=== PATIENT | male | born 1960 | race Two or more races ===

== ENCOUNTER 2019-01-04 09:47 | Emergency (ER) | payer SELFPAY ==
[~2019-01-04] VITALS: Ht 177.8 cm; Wt 79.4 kg
[2019-01-04 11:15] LABS: Basophils # (auto) 0.1 uL; Basophils % (auto) 1.9 % (0.0-2.0); Eosinophils # (auto) 0 uL; Eosinophils % (auto) 0.5 % (0.0-7.0); Hematocrit 45.8 % (41.0-53.0); Hemoglobin 15.9 g/dL (13.5-17.5); Lymphocytes # (auto) 1.3 uL; Mean Corpuscular Hemoglobin 31.5 pg (28.0-32.0); Mean Corpuscular Hgb Conc. 34.7 g/dL (32.0-36.0); Mean Corpuscular Volume 90.8 fL (80.0-100.0); Monocytes # (auto) 0.3 uL; Monocytes % (auto) 6.2 % (0.0-12.0); Neutrophils # (auto) 3.8 uL; Neutrophils % (auto) 68.4 % (37.0-80.0); Nucleated Red Blood Cells % 0.1 %; Platelet Count (auto) 236 10^3/uL (140-450); Red Blood Cells 5.04 10^6/uL (4.5-5.90); Red Cell Distribution Width 13.8 % (11.8-14.3); White Blood Cell 5.6 10^3/uL (4.4-10.8)
[2019-01-04 11:30] LABS: Albumin 3.2 g/dL (3.4-5.0); Calcium 8.7 mg/dL (8.5-10.1); Potassium 4.4 mmol/L (3.5-5.1)
[2019-01-04] MEDS ORDERED: SODIUM CHLORIDE 0.9% 1,000 ML IV ONE (11:30)
[2019-01-04] MEDS ORDERED: MORPHINE SULFATE 4 MG/ML SYR/VIAL IV ONE (11:30)
[2019-01-04] MEDS ORDERED: InsuLIN REG 1unit/0.01ml Soln (100units/ml) IV ONE (11:30)
[2019-01-04] MEDS ORDERED: ONDANSETRON HCL 4 MG/2 ML VIAL IV ONE (11:30)
[2019-01-04 11:39] LABS: BUN/Creatinine Ratio 14.4; Bilirubin, Total 0.3 mg/dL (0.2-1.0)
[2019-01-04] MEDS ORDERED: SODIUM CHLORIDE 0.9% 1,000 ML IVB ONE (12:23)
[2019-01-04 12:58] LABS: Urine Bacteria NONE SEEN /hpf (None Seen); Urine Blood Negative /uL (Negative); Urine Specific Gravity 1.027 (1.001-1.035); Urine WBC <1 /hpf (0 - 3)
[2019-01-04 15:57] VITALS: BP 109/73
== END 2019-01-04 17:02 | disposition home or self-care (01) ==
LOC: EDBD 09:47 → ER 09:47
DX: E83.52 Hypercalcemia (principal); N30.91 Cystitis, unspecified with hematuria; E78.5 Hyperlipidemia, unspecified; I10 Essential (primary) hypertension; E13.40 Other specified diabetes mellitus with diabetic neuropathy, unspecified
CPT/HCPCS: 36415; 71045; 74176; 80053; 81001; 82962; 85025; 94761; 96374; 96375; 99284; J1815; J2270; J2405

== ENCOUNTER → 2019-05-15 | Outpatient (CLI) | payer MEDICAID | END | disposition home or self-care (01) | LOC: Rad HDHVI 09:30 | PROVIDERS: ATTEND Internal Medicine | DX: I10 Essential (primary) hypertension (principal); R07.9 Chest pain, unspecified; J44.9 Chronic obstructive pulmonary disease, unspecified | CPT/HCPCS: 93306 ==

== ENCOUNTER → 2019-05-20 | Outpatient (CLI) | payer MEDICAID ==
[~2019-05-20] VITALS: Ht 177.8 cm; Wt 81.6 kg
[~2019-05-20] MED LIST: ADENOSINE 69 MG in GIVE UN-DILUTED 0 ML IV ONE; ADENOSINE 90 MG/30 ML INJ IV ONE
== END | disposition home or self-care (01) ==
LOC: Rad HDHVI 12:55
PROVIDERS: ATTEND Internal Medicine
DX: E78.00 Pure hypercholesterolemia, unspecified (principal); I10 Essential (primary) hypertension; E11.9 Type 2 diabetes mellitus without complications; J44.9 Chronic obstructive pulmonary disease, unspecified; R07.9 Chest pain, unspecified; Z82.49 Family history of ischemic heart disease and other diseases of the circulatory system
CPT/HCPCS: 78452; 93005; 96374; 96375; A9500; J0153

== ENCOUNTER → 2019-08-22 | Outpatient (CLI) | payer MEDICAID ==
[2019-08-22 08:50] VITALS: BP 121/72
[2019-08-22 09:20] VITALS: BP 109/68
[2019-08-22 12:09] LABS: Basophils # (auto) 0.1 10 ^3/uL (0-0.2); Basophils % (auto) 0.8 % (0.0-2.0); Eosinophils # (auto) 0.2 10 ^3/uL (0-0.8); Eosinophils % (auto) 2.6 % (0.0-7.0); Hemoglobin 15.3 g/dL (13.5-17.5); Lymphocytes # (auto) 2.3 10 ^3/uL (0.4-5.4); Lymphocytes % (auto) 36.9 % (10.0-50.0); Mean Corpuscular Hemoglobin 30.5 pg (28.0-32.0); Mean Corpuscular Hgb Conc. 33.4 g/dL (32.0-36.0); Mean Corpuscular Volume 91.3 fL (80.0-100.0); Monocytes # (auto) 0.5 10 ^3/uL (0-1.3); Monocytes % (auto) 7.3 % (0.0-12.0); Neutrophils # (auto) 3.3 10 ^3/uL (1.6-8.6); Neutrophils % (auto) 52.4 % (37.0-80.0); Nucleated Red Blood Cells % 0.1 %; Platelet Count (auto) 249 10^3/uL (140-450); Red Blood Cells 5.04 10^6/uL (4.5-5.90); Red Cell Distribution Width 15.1 % (11.8-14.3); White Blood Cell 6.3 10^3/uL (4.4-10.8)
[2019-08-22 12:12] LABS: Partial Thromboplastin Time 27.3 sec (23.64-32.05)
[2019-08-22 12:29] LABS: Calcium 9.1 mg/dL (8.5-10.1); Potassium 3.7 mmol/L (3.5-5.1)
[2019-08-22 12:32] LABS: BUN/Creatinine Ratio 13.2
== END | disposition home or self-care (01) ==
LOC: Rad HDHVI 08:30
PROVIDERS: ATTEND Internal Medicine
DX: Z01.812 Encounter for preprocedural laboratory examination (principal); J98.11 Atelectasis
CPT/HCPCS: 36415; 71046; 80048; 85025; 85610; 85730; 93005; G0463

== ENCOUNTER 2019-08-27 07:13 | Day surgery (SDC) | payer MEDICAID ==
[~2019-08-27] VITALS: Ht 177.8 cm; Wt 83.9 kg
[2019-08-27] MEDS ORDERED: IODIXANOL 320MG/ML 100ML BTL IV ONE ×2 (07:34→09:00)
[2019-08-27] MEDS ORDERED: LIDOCAINE 2%HCL (LOCAL ANESTH.) INJ 20ML MDV ONE (07:34)
[2019-08-27] MEDS ORDERED: ANGIOMAX 250 MG VIAL IV ONE (08:58)
[2019-08-27] MEDS ORDERED: MIDAZOLAM HCL 1MG/1ML-2 ML VIAL ONE (08:59)
[2019-08-27] MEDS ORDERED: VERAPAMIL 2.5MG/ML INJ 2ML VIAL IV ONE (08:59)
[2019-08-27] MEDS ORDERED: fentaNYL CITRATE 100 MCG/2 ML VL ONE (08:59)
[2019-08-27] MEDS ORDERED: SODIUM CHL 0.9% 0 ML ONE (09:00)
[2019-08-27] MEDS ORDERED: NITROGLYCERIN 50MG/250ML 250 ML IV ONE (09:00)
[2019-08-27] MEDS ORDERED: HEPARIN SODIUM (PORCINE) 5000 UNITS/ML 1ML VIAL ONE (09:16)
[2019-08-27] MEDS ORDERED: ONDANSETRON HCL 4 MG/2 ML VIAL IV PRN (10:30)
[2019-08-27] MEDS ORDERED: HYDROcodone-ACET 5/325MG TAB PO PRN (10:30)
[2019-08-27] MEDS ORDERED: ACETAMINOPHEN 500 MG TAB PO PRN (10:30)
[2019-08-27] MEDS ORDERED: GLIP10TA9 PO (10:36)
[2019-08-27] MEDS ORDERED: ASPI81CH43 PO (10:36)
[2019-08-27] MEDS ORDERED: GABA-339 PO (10:36)
[2019-08-27] MEDS ORDERED: ALBUAER3 IN (10:36)
[2019-08-27] MEDS ORDERED: INSU1INJ19 SC (10:36)
[2019-08-27] MEDS ORDERED: BECL80AE11 IN (10:36)
[2019-08-27] MEDS ORDERED: METH2.5T3 PO (10:36)
[2019-08-27] MEDS ORDERED: TAMS0.4C36 PO (10:36)
[2019-08-27] MEDS ORDERED: ATOR1TAB PO (10:36)
[2019-08-27] MEDS ORDERED: CHOL20007 PO (10:36)
[2019-08-27] MEDS ORDERED: RANO500T2 PO (10:36)
[2019-08-27] MEDS ORDERED: FOLI1TAB6 PO (10:36)
== END 2019-08-27 12:33 | disposition home or self-care (01) ==
LOC: CATH 07:13
PROVIDERS: ATTEND Internal Medicine
DX: R06.02 Shortness of breath (principal); J44.9 Chronic obstructive pulmonary disease, unspecified; I10 Essential (primary) hypertension; E11.9 Type 2 diabetes mellitus without complications; Z98.890 Other specified postprocedural states; Z79.899 Other long term (current) drug therapy; Z11.59 Encounter for screening for other viral diseases
CPT/HCPCS: 87635; 93458; C1769; C1887; C1894; J1644; J2250; J3010; J7030; Q9967; 99152; 99153

== ENCOUNTER 2020-09-04 05:05 | Emergency (ER) | payer MEDICAID ==
[~2020-09-04] VITALS: Ht 177.8 cm; Wt 98.0 kg
[~2020-09-04 05:05] MED LIST changes: -ADENOSINE 69 MG in GIVE UN-DILUTED 0 ML IV ONE; -ADENOSINE 90 MG/30 ML INJ IV ONE; +ALBUAER3 IN; +ASPI81CH43 PO; +ATOR-47 PO; +BECL80AE11 IN; +CHOL20007 PO; +FOLI1TAB6 PO; +GABA-339 PO; +GLIP10TA9 PO; +INSU1INJ19 SC; +METH2.5T PO; +RANO500T2 PO; +TAMS0.4C36 PO
[2020-09-04 05:42] LABS: Basophils # (auto) 0.1 10 ^3/uL (0-0.2); Basophils % (auto) 0.5 % (0.0-2.0); Eosinophils # (auto) 0.1 10 ^3/uL (0-0.8); Eosinophils % (auto) 0.7 % (0.0-7.0); Hematocrit 37.7 % (41.0-53.0); Hemoglobin 13.4 g/dL (13.5-17.5); Lymphocytes # (auto) 1.2 10 ^3/uL (0.4-5.4); Lymphocytes % (auto) 11.6 % (10.0-50.0); Mean Corpuscular Hemoglobin 32.7 pg (28.0-32.0); Mean Corpuscular Hgb Conc. 35.6 g/dL (32.0-36.0); Mean Corpuscular Volume 91.7 fL (80.0-100.0); Monocytes # (auto) 0.6 10 ^3/uL (0-1.3); Monocytes % (auto) 5.1 % (0.0-12.0); Neutrophils # (auto) 8.8 10 ^3/uL (1.6-8.6); Neutrophils % (auto) 82.1 % (37.0-80.0); Nucleated Red Blood Cells % 0.2 %; Red Blood Cells 4.11 10^6/uL (4.5-5.90); Red Cell Distribution Width 13.3 % (11.8-14.3); White Blood Cell 10.7 10^3/uL (4.4-10.8)
[2020-09-04 05:59] LABS: Albumin 4.1 g/dL (3.4-5.0)
[2020-09-04 06:05] LABS: BUN/Creatinine Ratio 13.8; Bilirubin, Total 0.4 mg/dL (0.2-1.0); Total Protein 7.6 g/dL (6.4-8.2)
[2020-09-04 06:42] LABS: INR 0.98 (0.9-1.15); Partial Thromboplastin Time 25.2 sec (23.0-31.2)
[2020-09-04] MEDS ORDERED: SPIRONOLACTONE 25 MG TAB PO ONE (07:15)
[2020-09-04] MEDS ORDERED: FUROSEMIDE 40 MG/4 ML VIAL IV ONE (07:15)
[2020-09-04 08:15] LABS: Urine Bacteria NONE SEEN /hpf (None Seen); Urine Blood Negative /uL (Negative); Urine Specific Gravity 1.011 (1.001-1.035); Urine WBC 1 /hpf (0 - 3)
[2020-09-04 10:22] VITALS: BP 129/75
== END 2020-09-04 11:18 | disposition home or self-care (01) ==
LOC: ER 05:05
DX: R06.02 Shortness of breath (principal); R09.89 Other specified symptoms and signs involving the circulatory and respiratory systems; E11.9 Type 2 diabetes mellitus without complications; I11.0 Hypertensive heart disease with heart failure; I50.9 Heart failure, unspecified; J44.9 Chronic obstructive pulmonary disease, unspecified; E78.5 Hyperlipidemia, unspecified; Z20.822 Contact with and (suspected) exposure to COVID-19
CPT/HCPCS: 36415; 71045; 80053; 81001; 83880; 85025; 85379; 85610; 85730; 87426; 93005; 96374; 99285; J1940

== ENCOUNTER → 2020-11-10 | Outpatient (CLI) | payer MEDICAID | END | disposition home or self-care (01) | LOC: Rad HDHVI 08:01 | PROVIDERS: ATTEND Internal Medicine | DX: I35.8 Other nonrheumatic aortic valve disorders (principal); I11.9 Hypertensive heart disease without heart failure; I25.10 Atherosclerotic heart disease of native coronary artery without angina pectoris; R07.9 Chest pain, unspecified | CPT/HCPCS: 93306 ==

== ENCOUNTER → 2022-02-10 | Outpatient (CLI) | payer MEDICAID ==
[~2022-02-10] VITALS: Ht 177.8 cm; Wt 94.3 kg
[~2022-02-10] MED LIST changes: +ADENOSINE 79 MG in GIVE UN-DILUTED 0 ML IV ONE; +ADENOSINE 90 MG/30 ML INJ IV ONE
== END | disposition home or self-care (01) ==
LOC: Rad HDHVI 08:08
PROVIDERS: ATTEND Internal Medicine
DX: I10 Essential (primary) hypertension (principal); E11.9 Type 2 diabetes mellitus without complications; E78.5 Hyperlipidemia, unspecified; R07.9 Chest pain, unspecified; J44.9 Chronic obstructive pulmonary disease, unspecified; Z82.49 Family history of ischemic heart disease and other diseases of the circulatory system; Z79.82 Long term (current) use of aspirin; Z79.899 Other long term (current) drug therapy
CPT/HCPCS: 78452; 93005; 96374; 96375; A9500; J0153

== ENCOUNTER → 2022-02-14 | Outpatient (CLI) | payer MEDICAID ==
[~2022-02-14] MED LIST changes: -ADENOSINE 79 MG in GIVE UN-DILUTED 0 ML IV ONE; -ADENOSINE 90 MG/30 ML INJ IV ONE
== END | disposition home or self-care (01) ==
LOC: Rad HDHVI 07:59
PROVIDERS: ATTEND Internal Medicine
DX: I08.2 Rheumatic disorders of both aortic and tricuspid valves (principal); I10 Essential (primary) hypertension; R07.9 Chest pain, unspecified
CPT/HCPCS: 93306

== ENCOUNTER → 2022-04-24 | Outpatient (CLI) | payer MEDICAID ==
[~2022-04-24] MED LIST changes: +ALOG25TA PO; +ASPI1TAB19 PO; +ATO40T PO; +BACL20TA PO; +CHOL500033 PO; +DOCU100T15 PO; +FLU220IH IN; +FLUT1AER17 IN; +FURO1TAB31 PO; +HYDR-4072 PO; +INSLISPI SC; +METO25TA36 PO; +TAM04C PO; +TERB250T86 PO; +TIZA4TAB9 PO; +TOLT4CAP PO
[2022-04-24 11:10] VITALS: BP 100/65
[2022-04-24 11:25] VITALS: BP 111/67
[2022-04-24 12:02] LABS: Basophils # (auto) 0.1 10 ^3/uL (0-0.2); Basophils % (auto) 1.8 % (0.0-2.0); Eosinophils # (auto) 0.1 10 ^3/uL (0-0.8); Eosinophils % (auto) 2.4 % (0.0-7.0); Hematocrit 41.6 % (41.0-53.0); Hemoglobin 14.5 g/dL (13.5-17.5); Lymphocytes # (auto) 2.3 10 ^3/uL (0.4-5.4); Lymphocytes % (auto) 48.4 % (10.0-50.0); Mean Corpuscular Hemoglobin 31.9 pg (28.0-32.0); Mean Corpuscular Hgb Conc. 34.8 g/dL (32.0-36.0); Mean Corpuscular Volume 91.7 fL (80.0-100.0); Monocytes # (auto) 0.4 10 ^3/uL (0-1.3); Monocytes % (auto) 8.3 % (0.0-12.0); Neutrophils # (auto) 1.9 10 ^3/uL (1.6-8.6); Neutrophils % (auto) 39.1 % (37.0-80.0); Nucleated Red Blood Cells % 0.1 %; Red Blood Cells 4.53 10^6/uL (4.5-5.90); Red Cell Distribution Width 13.4 % (11.8-14.3); White Blood Cell 4.8 10^3/uL (4.4-10.8)
[2022-04-24 12:03] LABS: INR 0.97 (0.9-1.15); Partial Thromboplastin Time 27.9 sec (24.6-33.4)
[2022-04-24 12:07] LABS: BUN/Creatinine Ratio 13.1; Potassium 4.1 mmol/L (3.5-5.1)
== END | disposition home or self-care (01) ==
LOC: Rad HDHVI 10:52
PROVIDERS: ATTEND Internal Medicine
DX: R07.9 Chest pain, unspecified (principal)
CPT/HCPCS: 36415; 71046; 80048; 85025; 85610; 85730; 93005; G0463

== ENCOUNTER 2022-04-26 08:33 | Day surgery (SDC) | payer MEDICAID ==
[~2022-04-26] VITALS: Ht 177.8 cm; Wt 93.0 kg
[~2022-04-26 08:33] MED LIST changes: -ASPI81CH43 PO; -ATOR-47 PO; -BECL80AE11 IN; -CHOL20007 PO; -FOLI1TAB6 PO; -GLIP10TA9 PO; -METH2.5T PO; -RANO500T2 PO; -TAMS0.4C36 PO
[2022-04-26] MEDS ORDERED: VERAPAMIL 2.5MG/ML INJ 2ML VIAL IV ONE (11:57)
[2022-04-26] MEDS ORDERED: ANGIOMAX 250 MG VIAL IV ONE (11:57)
[2022-04-26] MEDS ORDERED: HEPARIN SODIUM (PORCINE) 5000 UNITS/ML 1ML VIAL ONE (11:57)
[2022-04-26] MEDS ORDERED: MIDAZOLAM HCL 2MG/2ML 2ml VIAL (1mg/ml) ONE (11:58)
[2022-04-26] MEDS ORDERED: fentaNYL CITRATE 100 MCG/2 ML VL ONE (11:58)
[2022-04-26] MEDS ORDERED: LIDOCAINE 2%HCL (LOCAL ANESTH.) INJ 10ml MDV ONE (11:58)
[2022-04-26] MEDS ORDERED: SODIUM CHL 0.9% 0 ML ONE (11:58)
[2022-04-26] MEDS ORDERED: IODIXANOL 320MG/ML 100ML BTL IV ONE (11:58)
== END 2022-04-26 14:55 | disposition home or self-care (01) ==
LOC: CATH 08:33
PROVIDERS: ATTEND Internal Medicine
DX: R94.39 Abnormal result of other cardiovascular function study (principal); R07.9 Chest pain, unspecified; I20.9 Angina pectoris, unspecified; I10 Essential (primary) hypertension; Z79.899 Other long term (current) drug therapy; Z20.822 Contact with and (suspected) exposure to COVID-19
CPT/HCPCS: 82962; 93458; C1769; C1887; C1894; J1644; J2001; J2250; J3010; J7030; Q9967; U0003; 99152; 99153

== ENCOUNTER → 2023-08-14 | Outpatient (CLI) | payer MEDICAID ==
[~2023-08-14] VITALS: Ht 177.8 cm; Wt 88.9 kg
[~2023-08-14] MED LIST changes: +ADENOSINE 75 MG in GIVE UN-DILUTED 0 ML IV ONE; +ADENOSINE 90 MG/30 ML INJ IV ONE; -ATO40T PO; +ATOR-507 PO; -TAM04C PO; +TAMS-35 PO
== END | disposition home or self-care (01) ==
LOC: Rad HDHVI 12:08
PROVIDERS: ATTEND Internal Medicine Cardiovascular Disease
DX: I11.0 Hypertensive heart disease with heart failure (principal); I50.43 Acute on chronic combined systolic (congestive) and diastolic (congestive) heart failure; E11.9 Type 2 diabetes mellitus without complications; J44.9 Chronic obstructive pulmonary disease, unspecified; I42.1 Obstructive hypertrophic cardiomyopathy; E78.5 Hyperlipidemia, unspecified; Z82.49 Family history of ischemic heart disease and other diseases of the circulatory system
CPT/HCPCS: 78452; 93005; 96374; 96375; A9500; J0153

== ENCOUNTER → 2023-08-22 | Outpatient (CLI) | payer MEDICAID ==
[~2023-08-22] MED LIST changes: -ADENOSINE 75 MG in GIVE UN-DILUTED 0 ML IV ONE; -ADENOSINE 90 MG/30 ML INJ IV ONE
== END | disposition home or self-care (01) ==
LOC: Rad HDHVI 07:56
PROVIDERS: ATTEND Internal Medicine Cardiovascular Disease
DX: I10 Essential (primary) hypertension (principal); E78.5 Hyperlipidemia, unspecified
CPT/HCPCS: 93306